=== PATIENT | male | born 1985 | race Two or more races ===

== ENCOUNTER 2018-07-05 06:36 | Inpatient (IN) | payer OTHER ==
[~2018-07-05] VITALS: Ht 182.9 cm; Wt 137.9 kg
== END 2018-07-09 10:50 | disposition designated cancer center or children's hospital (05) | DRG 280 ==
LOC: ER 06:36 → ICU-2 16:24
PROC: B246ZZZ Ultrasonography of Right and Left Heart (ICD-10-PCS; principal; 2018-07-05)
DX: I21.4 Non-ST elevation (NSTEMI) myocardial infarction (principal); I50.33 Acute on chronic diastolic (congestive) heart failure; I16.9 Hypertensive crisis, unspecified; E66.8 Other obesity; I25.2 Old myocardial infarction